=== PATIENT | female | born 1940 | race Caucasian/White ===

== ENCOUNTER 2017-09-04 13:14 | Emergency (ER) | payer OTHER, MEDICAID ==
[~2017-09-04] VITALS: Ht 160 cm; Wt 81.6 kg
[2017-09-04 14:01] LABS: Urine Bacteria NONE SEEN /hpf (None Seen); Urine Blood Negative /uL (Negative); Urine Specific Gravity 1.006 (1.001-1.035); Urine WBC 6 /hpf (0 - 5)
[2017-09-04 14:13] LABS: Basophils # (auto) 0.1 uL; Basophils % (auto) 0.6 % (0.0-2.0); Eosinophils # (auto) 0.1 uL; Eosinophils % (auto) 1.4 % (0.0-7.0); Hematocrit 37.1 % (36.0-46.0); Hemoglobin 12.2 g/dL (12.2-16.2); Lymphocytes # (auto) 1.6 uL; Lymphocytes % (auto) 16.9 % (10.0-50.0); Mean Corpuscular Hemoglobin 30.1 pg (28.0-32.0); Mean Corpuscular Hgb Conc. 32.9 g/dL (32.0-36.0); Mean Corpuscular Volume 91.4 fL (80.0-100.0); Monocytes # (auto) 0.6 uL; Monocytes % (auto) 6.1 % (0.0-12.0); Neutrophils # (auto) 7.2 uL; Nucleated Red Blood Cells % 0.1 %; Platelet Count (auto) 254 10^3/uL (140-450); Red Blood Cells 4.06 10^6/uL (4.0-5.20); Red Cell Distribution Width 14.6 % (11.8-14.3); White Blood Cell 9.6 10^3/uL (4.4-10.8)
[2017-09-04 14:32] LABS: Alanine Aminotransferase 23 U/L (13-56); Albumin 3.8 g/dL (3.4-5.0); Alkaline Phosphatase 78 U/L (45-117); Anion Gap 9 (5-15); Aspartate Aminotransferase 12 U/L (15-37); BUN/Creatinine Ratio 15.4; Bilirubin, Total 0.3 mg/dL (0.2-1.0); Blood Urea Nitrogen 14 mg/dL (7-18); Calcium 8.8 mg/dL (8.5-10.1); Carbon Dioxide 22 mmol/L (21-32); Chloride 104 mmol/L (98-107); GFR African American 78 mL/min; GFR Non-African American 64 mL/min; Glucose 106 mg/dL (74-106); Magnesium 2.1 mg/dL (1.6-2.6); Potassium 3.8 mmol/L (3.5-5.1); Sodium 135 mmol/L (136-145); Total Protein 7.3 g/dL (6.4-8.2)
[2017-09-04] MEDS ORDERED: IPRATROPIUM BROM 0.5 MG/2.5ML INH SOL NEB ONE (15:45)
[2017-09-04] MEDS ORDERED: methylPREDNISolone SOD SUCC 125 MG/2 ML VL IV ONE (15:45)
[2017-09-04] MEDS ORDERED: ALBUTEROL SULF 2.5 MG/0.5ML(0.5%) NEB SOLN NEB ONE (15:45)
[2017-09-04] MEDS ORDERED: cefTRIAXone 1GM/10ml IVPUSH 10 ML IV ONE (16:00)
[2017-09-04 16:09] VITALS: BP 192/72
== END 2017-09-04 17:30 | disposition home or self-care (01) ==
LOC: ER 13:14 → EDBD 13:14 → ER 17:30
DX: J44.1 Chronic obstructive pulmonary disease with (acute) exacerbation (principal); N39.0 Urinary tract infection, site not specified; E11.9 Type 2 diabetes mellitus without complications; I10 Essential (primary) hypertension; M10.9 Gout, unspecified; F32.9 Major depressive disorder, single episode, unspecified; F17.210 Nicotine dependence, cigarettes, uncomplicated; Z59.0 Homelessness
CPT/HCPCS: 36415; 71046; 80053; 81001; 83735; 84484; 85025; 87804; 94640; 94761; 96374; 96375; 99285; J2930; 93005

== ENCOUNTER 2017-09-27 16:30 | Emergency (ER) | payer OTHER, MEDICAID ==
[~2017-09-27] VITALS: Ht 160 cm; Wt 81.6 kg
[2017-09-27 17:47] LABS: Alanine Aminotransferase 32 U/L (13-56); Albumin 3.6 g/dL (3.4-5.0); Anion Gap 11 (5-15); Aspartate Aminotransferase 21 U/L (15-37); BUN/Creatinine Ratio 10.4; Blood Urea Nitrogen 14 mg/dL (7-18); Calcium 9.1 mg/dL (8.5-10.1); Carbon Dioxide 21 mmol/L (21-32); Chloride 103 mmol/L (98-107); GFR African American 50 mL/min; GFR Non-African American 41 mL/min; Glucose 168 mg/dL (74-106); Magnesium 2.8 mg/dL (1.6-2.6); Potassium 3.9 mmol/L (3.5-5.1); Sodium 135 mmol/L (136-145)
[2017-09-27 17:50] LABS: Alkaline Phosphatase 79 U/L (45-117); Bilirubin, Total 0.4 mg/dL (0.2-1.0); Total Protein 7.3 g/dL (6.4-8.2)
[2017-09-27 17:59] LABS: Basophils # (auto) 0.1 uL; Basophils % (auto) 0.6 % (0.0-2.0); Eosinophils # (auto) 0 uL; Eosinophils % (auto) 0.3 % (0.0-7.0); Hematocrit 41.7 % (36.0-46.0); Hemoglobin 13.6 g/dL (12.2-16.2); Lymphocytes # (auto) 1.1 uL; Lymphocytes % (auto) 7.6 % (10.0-50.0); Mean Corpuscular Hemoglobin 30.2 pg (28.0-32.0); Mean Corpuscular Hgb Conc. 32.7 g/dL (32.0-36.0); Mean Corpuscular Volume 92.5 fL (80.0-100.0); Monocytes # (auto) 0.8 uL; Monocytes % (auto) 5.2 % (0.0-12.0); Neutrophils # (auto) 12.9 uL; Neutrophils % (auto) 86.3 % (37.0-80.0); Platelet Count (auto) 254 10^3/uL (140-450); Red Cell Distribution Width 14.8 % (11.8-14.3); White Blood Cell 14.9 10^3/uL (4.4-10.8)
[2017-09-27 20:55] VITALS: BP 135/80
== END 2017-09-27 21:09 | disposition home or self-care (01) ==
LOC: EDUNIT# 16:30 → ER 16:30 → EDBD 16:30 → ER 21:09
DX: R41.82 Altered mental status, unspecified (principal); F17.210 Nicotine dependence, cigarettes, uncomplicated; J44.9 Chronic obstructive pulmonary disease, unspecified; E11.9 Type 2 diabetes mellitus without complications; M10.9 Gout, unspecified; I10 Essential (primary) hypertension; Z90.710 Acquired absence of both cervix and uterus; Z90.89 Acquired absence of other organs; Z88.2 Allergy status to sulfonamides; Z91.040 Latex allergy status; Z88.0 Allergy status to penicillin
CPT/HCPCS: 36415; 70450; 71045; 80053; 83735; 84484; 85025; 93005; 94761

== ENCOUNTER 2018-01-10 09:02 | Inpatient (IN) | payer MEDICARE, MEDICAID ==
[~2018-01-10] VITALS: Ht 157.5 cm; Wt 69.9 kg
[~2018-01-10 09:02] MED LIST: APIX5TAB PO; DOCU100C8 PO; INSREGI SC; MED20T PO; NITR0.4S29 SL; NUTR-1405 PO; SERT-138 PO
[2018-01-10 09:56] LABS: Basophils # (auto) 0 uL; Basophils % (auto) 0.4 % (0.0-2.0); Eosinophils # (auto) 0.3 uL; Eosinophils % (auto) 3.2 % (0.0-7.0); Hematocrit 37.3 % (36.0-46.0); Hemoglobin 12.3 g/dL (12.2-16.2); Lymphocytes # (auto) 1.3 uL; Lymphocytes % (auto) 13.4 % (10.0-50.0); Mean Corpuscular Hemoglobin 30.5 pg (28.0-32.0); Mean Corpuscular Volume 92.3 fL (80.0-100.0); Monocytes # (auto) 0.8 uL; Monocytes % (auto) 8.9 % (0.0-12.0); Neutrophils % (auto) 74.1 % (37.0-80.0); Nucleated Red Blood Cells % 0.1 %; Platelet Count (auto) 278 10^3/uL (140-450); Red Blood Cells 4.04 10^6/uL (4.0-5.20); Red Cell Distribution Width 14.8 % (11.8-14.3); White Blood Cell 9.5 10^3/uL (4.4-10.8)
[2018-01-10 10:11] LABS: Alanine Aminotransferase 62 U/L (13-56); Anion Gap 10 (5-15); Aspartate Aminotransferase 26 U/L (15-37); BUN/Creatinine Ratio 22.2; Blood Urea Nitrogen 16 mg/dL (7-18); Calcium 8.7 mg/dL (8.5-10.1); Carbon Dioxide 20 mmol/L (21-32); Chloride 108 mmol/L (98-107); GFR African American 102 mL/min; GFR Non-African American 84 mL/min; Glucose 150 mg/dL (74-106); Magnesium 2.1 mg/dL (1.6-2.6); Potassium 3.9 mmol/L (3.5-5.1); Sodium 138 mmol/L (136-145)
[2018-01-10 10:16] LABS: Alkaline Phosphatase 84 U/L (45-117); Bilirubin, Total 0.6 mg/dL (0.2-1.0); Total Protein 6.7 g/dL (6.4-8.2)
[2018-01-10] MEDS ORDERED: ALUM & MAG HYDROX-SIMETH LIQ(MAALOX) 30 ML PO ONE (11:30)
[2018-01-10] MEDS ORDERED: DONNATAL 5ml ORAL Elix (BELLADONNA ALK-PHENOBARB) PO ONE (11:30)
[2018-01-10] MEDS ORDERED: LIDOCAINE VISCOUS 2% 15ML UD PO ONE (11:30)
[2018-01-10 13:33] LABS: Urine Bacteria MANY /hpf (None Seen); Urine Blood TRACE /uL (Negative); Urine Mucus FEW (None Seen); Urine Specific Gravity 1.023 (1.001-1.035); Urine WBC 28 /hpf (0 - 5)
[2018-01-10] MEDS ORDERED: SOD CHL 0.45% 1,000 ML IV ONE (17:15)
[2018-01-10] MEDS ORDERED: MORPHINE SULFATE 4 MG/ML SYR/VIAL IV PRN (17:15)
[2018-01-10] MEDS ORDERED: NITROGLYCERIN 0.4 MG SL TAB SL PRN (17:15)
[2018-01-10] MEDS ORDERED: POLYETHYLENE GLYCOL 17 GM PWDR PO PRN (17:30)
[2018-01-10] MEDS ORDERED: ONDANSETRON HCL 4 MG/2 ML VIAL IV PRN (17:30)
[2018-01-10] MEDS ORDERED: DEXTROSE (50%) 50ML SYRG IV PRN (17:30)
[2018-01-10] MEDS: DOCUSATE SOD 100 MG CAP PO SCH ×2 (17:53→21:01)
[2018-01-10] MEDS: APIXABAN 5 MG TAB PO SCH ×2 (17:53→21:10)
[2018-01-10] MEDS: ACCU-CHEK COMFORT CURVE STRIP VI SCH (20:58)
[2018-01-10] MEDS: InsuLIN REG 1unit/0.01ml Soln (100units/ml) SC SCH (20:58)
[2018-01-10] MEDS: MEGESTROL ACETATE 20 MG TAB PO SCH (21:10)
[2018-01-11] VITALS (7 sets, daily range): BP systolic 113–137; BP diastolic 64–85
[2018-01-11] MEDS ORDERED: TEMAZEPAM 15 MG CAP PO ONE
[2018-01-11] MEDS ORDERED: METF-370 PO (02:27)
[2018-01-11] MEDS ORDERED: INSR100KIT IV (02:34)
[2018-01-11] MEDS: ACCU-CHEK COMFORT CURVE STRIP VI SCH ×4 (06:18→22:02)
[2018-01-11] MEDS: InsuLIN REG 1unit/0.01ml Soln (100units/ml) SC SCH ×4 (06:18→22:00)
[2018-01-11 08:32] LABS: Basophils # (auto) 0.1 uL; Eosinophils # (auto) 0.3 uL; Eosinophils % (auto) 3.6 % (0.0-7.0); Hematocrit 39.6 % (36.0-46.0); Lymphocytes # (auto) 2.1 uL; Lymphocytes % (auto) 24.8 % (10.0-50.0); Mean Corpuscular Hemoglobin 30.4 pg (28.0-32.0); Mean Corpuscular Hgb Conc. 32.8 g/dL (32.0-36.0); Mean Corpuscular Volume 92.7 fL (80.0-100.0); Monocytes # (auto) 0.7 uL; Monocytes % (auto) 7.9 % (0.0-12.0); Neutrophils # (auto) 5.2 uL; Neutrophils % (auto) 62.7 % (37.0-80.0); Nucleated Red Blood Cells % 0.1 %; Platelet Count (auto) 280 10^3/uL (140-450); Red Blood Cells 4.27 10^6/uL (4.0-5.20); Red Cell Distribution Width 15.1 % (11.8-14.3); White Blood Cell 8.3 10^3/uL (4.4-10.8)
[2018-01-11 08:49] LABS: BUN/Creatinine Ratio 17.4; Calcium 8.5 mg/dL (8.5-10.1); Potassium 3.5 mmol/L (3.5-5.1)
[2018-01-11] MEDS: SERTRALINE HCL 50 MG TAB PO SCH (11:41)
[2018-01-11] MEDS: APIXABAN 5 MG TAB PO SCH ×2 (11:41→22:04)
[2018-01-11] MEDS: DOCUSATE SOD 100 MG CAP PO SCH ×2 (11:41→22:04)
[2018-01-11] MEDS: MEGESTROL ACETATE 20 MG TAB PO SCH ×2 (11:56→22:03)
[2018-01-11] MEDS ORDERED: INSREG3 SUBCUT (20:26)
[2018-01-12] VITALS (7 sets, daily range): BP systolic 122–146; BP diastolic 70–79
[2018-01-12] MEDS: ACCU-CHEK COMFORT CURVE STRIP VI SCH ×4 (06:35→21:26)
[2018-01-12] MEDS: InsuLIN REG 1unit/0.01ml Soln (100units/ml) SC SCH ×4 (06:35→21:26)
[2018-01-12] MEDS: SERTRALINE HCL 50 MG TAB PO SCH (10:06)
[2018-01-12] MEDS: APIXABAN 5 MG TAB PO SCH ×2 (10:06→21:25)
[2018-01-12] MEDS: DOCUSATE SOD 100 MG CAP PO SCH ×2 (10:06→21:25)
[2018-01-12] MEDS: MEGESTROL ACETATE 20 MG TAB PO SCH ×2 (10:15→21:25)
[2018-01-13] VITALS (7 sets, daily range): BP systolic 104–140; BP diastolic 66–85
[2018-01-13] MEDS: InsuLIN REG 1unit/0.01ml Soln (100units/ml) SC SCH ×4 (05:58→20:57)
[2018-01-13] MEDS: ACCU-CHEK COMFORT CURVE STRIP VI SCH ×4 (05:58→20:57)
[2018-01-13 06:45] LABS: Basophils # (auto) 0.1 uL; Basophils % (auto) 1.4 % (0.0-2.0); Eosinophils # (auto) 0.2 uL; Eosinophils % (auto) 2.4 % (0.0-7.0); Hematocrit 38.7 % (36.0-46.0); Hemoglobin 12.7 g/dL (12.2-16.2); Lymphocytes # (auto) 2.4 uL; Mean Corpuscular Hemoglobin 29.7 pg (28.0-32.0); Mean Corpuscular Hgb Conc. 32.9 g/dL (32.0-36.0); Mean Corpuscular Volume 90.3 fL (80.0-100.0); Monocytes # (auto) 0.7 uL; Monocytes % (auto) 8.1 % (0.0-12.0); Neutrophils # (auto) 5.4 uL; Neutrophils % (auto) 61.1 % (37.0-80.0); Nucleated Red Blood Cells % 0.1 %; Platelet Count (auto) 233 10^3/uL (140-450); Red Blood Cells 4.29 10^6/uL (4.0-5.20); Red Cell Distribution Width 14.6 % (11.8-14.3); White Blood Cell 8.9 10^3/uL (4.4-10.8)
[2018-01-13 07:36] LABS: BUN/Creatinine Ratio 14.1; Calcium 8.7 mg/dL (8.5-10.1); Potassium 3.6 mmol/L (3.5-5.1)
[2018-01-13] MEDS: APIXABAN 5 MG TAB PO SCH ×2 (10:00→21:09)
[2018-01-13] MEDS: MEGESTROL ACETATE 20 MG TAB PO SCH ×2 (10:00→21:09)
[2018-01-13] MEDS: SERTRALINE HCL 50 MG TAB PO SCH (10:01)
[2018-01-13] MEDS: DOCUSATE SOD 100 MG CAP PO SCH ×2 (10:01→21:09)
[2018-01-13] MEDS ORDERED: LEVOFLOXACIN 500MG 100 ML IV ONE (16:45)
[2018-01-14 05:00] VITALS: BP 133/57
[2018-01-14] MEDS: ACCU-CHEK COMFORT CURVE STRIP VI SCH ×4 (05:54→22:51)
[2018-01-14] MEDS: InsuLIN REG 1unit/0.01ml Soln (100units/ml) SC SCH ×4 (05:54→22:51)
[2018-01-14 05:55] LABS: Basophils # (auto) 0.1 uL; Basophils % (auto) 0.6 % (0.0-2.0); Eosinophils # (auto) 0.2 uL; Eosinophils % (auto) 2.8 % (0.0-7.0); Hematocrit 36.5 % (36.0-46.0); Hemoglobin 12.4 g/dL (12.2-16.2); Lymphocytes # (auto) 2.2 uL; Mean Corpuscular Hemoglobin 31.1 pg (28.0-32.0); Mean Corpuscular Volume 91.4 fL (80.0-100.0); Monocytes # (auto) 0.8 uL; Monocytes % (auto) 10.1 % (0.0-12.0); Neutrophils # (auto) 4.9 uL; Neutrophils % (auto) 59.5 % (37.0-80.0); Nucleated Red Blood Cells % 0.1 %; Platelet Count (auto) 297 10^3/uL (140-450); Red Blood Cells 3.99 10^6/uL (4.0-5.20); Red Cell Distribution Width 14.3 % (11.8-14.3); White Blood Cell 8.2 10^3/uL (4.4-10.8)
[2018-01-14 06:13] LABS: BUN/Creatinine Ratio 15.1; Calcium 8.7 mg/dL (8.5-10.1); Potassium 3.7 mmol/L (3.5-5.1)
[2018-01-14 08:00] VITALS: BP 129/75
[2018-01-14 08:25] VITALS: BP 129/75
[2018-01-14] MEDS: LEVOFLOXACIN 500MG 100 ML IV SCH (11:02)
[2018-01-14] MEDS: MEGESTROL ACETATE 20 MG TAB PO SCH ×2 (11:03→22:51)
[2018-01-14] MEDS: DOCUSATE SOD 100 MG CAP PO SCH ×2 (11:03→22:50)
[2018-01-14] MEDS: SERTRALINE HCL 50 MG TAB PO SCH (11:03)
[2018-01-14] MEDS: APIXABAN 5 MG TAB PO SCH ×2 (11:03→22:50)
[2018-01-14 13:00] VITALS: BP 138/77
[2018-01-14 17:10] VITALS: BP 121/72
[2018-01-14 22:00] VITALS: BP 145/63
[2018-01-15 05:00] VITALS: BP 124/63
[2018-01-15] MEDS: InsuLIN REG 1unit/0.01ml Soln (100units/ml) SC SCH ×4 (07:01→21:47)
[2018-01-15] MEDS: ACCU-CHEK COMFORT CURVE STRIP VI SCH ×4 (07:01→21:47)
[2018-01-15 07:50] LABS: Basophils # (auto) 0.1 uL; Basophils % (auto) 0.6 % (0.0-2.0); Eosinophils # (auto) 0.2 uL; Eosinophils % (auto) 1.9 % (0.0-7.0); Hematocrit 36.4 % (36.0-46.0); Hemoglobin 12.1 g/dL (12.2-16.2); Mean Corpuscular Hemoglobin 30.3 pg (28.0-32.0); Mean Corpuscular Hgb Conc. 33.1 g/dL (32.0-36.0); Mean Corpuscular Volume 91.3 fL (80.0-100.0); Monocytes # (auto) 0.6 uL; Monocytes % (auto) 7.8 % (0.0-12.0); Neutrophils # (auto) 5.2 uL; Neutrophils % (auto) 64.7 % (37.0-80.0); Nucleated Red Blood Cells % 0.1 %; Platelet Count (auto) 298 10^3/uL (140-450); Red Blood Cells 3.99 10^6/uL (4.0-5.20); Red Cell Distribution Width 14.5 % (11.8-14.3); White Blood Cell 8.1 10^3/uL (4.4-10.8)
[2018-01-15 07:52] LABS: BUN/Creatinine Ratio 18.6; Calcium 8.6 mg/dL (8.5-10.1); Potassium 3.6 mmol/L (3.5-5.1)
[2018-01-15 08:00] VITALS: BP 143/73
[2018-01-15 09:00] VITALS: BP 143/98
[2018-01-15] MEDS ORDERED: hydrALAZINE HCL 20 MG/ML VL IV PRN (09:15)
[2018-01-15] MEDS: MEGESTROL ACETATE 20 MG TAB PO SCH ×2 (10:20→21:46)
[2018-01-15] MEDS: LEVOFLOXACIN 500MG 100 ML IV SCH (10:20)
[2018-01-15] MEDS: APIXABAN 5 MG TAB PO SCH ×2 (10:20→21:30)
[2018-01-15] MEDS: SERTRALINE HCL 50 MG TAB PO SCH (10:20)
[2018-01-15] MEDS: DOCUSATE SOD 100 MG CAP PO SCH ×2 (10:21→21:30)
[2018-01-15 13:00] VITALS: BP 139/70
[2018-01-15 17:00] VITALS: BP 144/75
[2018-01-15 21:49] VITALS: BP 147/79
[2018-01-16 04:35] LABS: Basophils # (auto) 0.1 uL; Basophils % (auto) 0.9 % (0.0-2.0); Eosinophils # (auto) 0.2 uL; Eosinophils % (auto) 2.2 % (0.0-7.0); Hematocrit 35.7 % (36.0-46.0); Hemoglobin 12.2 g/dL (12.2-16.2); Lymphocytes # (auto) 2.6 uL; Lymphocytes % (auto) 29.1 % (10.0-50.0); Mean Corpuscular Hemoglobin 31.1 pg (28.0-32.0); Mean Corpuscular Hgb Conc. 34.2 g/dL (32.0-36.0); Mean Corpuscular Volume 90.9 fL (80.0-100.0); Monocytes # (auto) 0.7 uL; Monocytes % (auto) 8.5 % (0.0-12.0); Neutrophils # (auto) 5.2 uL; Neutrophils % (auto) 59.3 % (37.0-80.0); Nucleated Red Blood Cells % 0.1 %; Platelet Count (auto) 284 10^3/uL (140-450); Red Blood Cells 3.93 10^6/uL (4.0-5.20); Red Cell Distribution Width 14.4 % (11.8-14.3); White Blood Cell 8.8 10^3/uL (4.4-10.8)
[2018-01-16 04:50] LABS: Calcium 8.8 mg/dL (8.5-10.1); Potassium 3.7 mmol/L (3.5-5.1)
[2018-01-16 04:52] VITALS: BP 149/69
[2018-01-16 04:52] LABS: BUN/Creatinine Ratio 17.9
[2018-01-16] MEDS: ACCU-CHEK COMFORT CURVE STRIP VI SCH ×4 (06:29→21:20)
[2018-01-16] MEDS: InsuLIN REG 1unit/0.01ml Soln (100units/ml) SC SCH ×4 (06:30→21:46)
[2018-01-16 09:14] VITALS: BP 160/77
[2018-01-16] MEDS: LEVOFLOXACIN 500MG 100 ML IV SCH (10:18)
[2018-01-16] MEDS: SERTRALINE HCL 50 MG TAB PO SCH (10:19)
[2018-01-16] MEDS: DOCUSATE SOD 100 MG CAP PO SCH ×2 (10:19→21:18)
[2018-01-16] MEDS: APIXABAN 5 MG TAB PO SCH ×2 (10:19→21:19)
[2018-01-16] MEDS: MEGESTROL ACETATE 20 MG TAB PO SCH ×2 (10:24→21:19)
[2018-01-16 10:58] VITALS: BP 160/77
[2018-01-16 12:49] VITALS: BP 135/74
[2018-01-16 17:10] VITALS: BP 121/103
[2018-01-16 22:00] VITALS: BP 148/72
[2018-01-17 05:11] VITALS: BP 155/77
[2018-01-17] MEDS: InsuLIN REG 1unit/0.01ml Soln (100units/ml) SC SCH ×2 (05:18→12:09)
[2018-01-17] MEDS: ACCU-CHEK COMFORT CURVE STRIP VI SCH ×2 (05:18→12:08)
[2018-01-17 06:18] LABS: Basophils # (auto) 0 uL; Basophils % (auto) 0.5 % (0.0-2.0); Eosinophils # (auto) 0.2 uL; Eosinophils % (auto) 1.9 % (0.0-7.0); Hematocrit 36.2 % (36.0-46.0); Hemoglobin 12.4 g/dL (12.2-16.2); Lymphocytes # (auto) 2.1 uL; Lymphocytes % (auto) 25.1 % (10.0-50.0); Mean Corpuscular Hemoglobin 31.1 pg (28.0-32.0); Mean Corpuscular Hgb Conc. 34.1 g/dL (32.0-36.0); Mean Corpuscular Volume 90.9 fL (80.0-100.0); Monocytes # (auto) 0.7 uL; Neutrophils # (auto) 5.4 uL; Neutrophils % (auto) 64.5 % (37.0-80.0); Nucleated Red Blood Cells % 0.1 %; Platelet Count (auto) 294 10^3/uL (140-450); Red Blood Cells 3.98 10^6/uL (4.0-5.20); Red Cell Distribution Width 14.3 % (11.8-14.3); White Blood Cell 8.4 10^3/uL (4.4-10.8)
[2018-01-17 06:40] LABS: BUN/Creatinine Ratio 21.3; Calcium 8.7 mg/dL (8.5-10.1); Potassium 3.4 mmol/L (3.5-5.1)
[2018-01-17 09:00] VITALS: BP 144/67
[2018-01-17] MEDS: DOCUSATE SOD 100 MG CAP PO SCH (10:19)
[2018-01-17] MEDS: APIXABAN 5 MG TAB PO SCH (10:19)
[2018-01-17] MEDS: LEVOFLOXACIN 500MG 100 ML IV SCH (10:19)
[2018-01-17] MEDS: MEGESTROL ACETATE 20 MG TAB PO SCH (10:19)
[2018-01-17] MEDS: SERTRALINE HCL 50 MG TAB PO SCH (10:19)
[2018-01-17 13:12] VITALS: BP 121/62
[2018-01-17 16:38] VITALS: BP 157/77
[2018-01-17 17:00] VITALS: BP 143/75
== END 2018-01-17 18:00 | DRG 445 ==
LOC: EDBD 09:02 → ER 09:04 → TELE 09:05 → TELE-WESTW 01-11 00:50
PROVIDERS: ADMIT Internal Medicine; ATTEND Internal Medicine
DX: K80.20 Calculus of gallbladder without cholecystitis without obstruction (principal); N39.0 Urinary tract infection, site not specified; F32.9 Major depressive disorder, single episode, unspecified; J44.9 Chronic obstructive pulmonary disease, unspecified; I10 Essential (primary) hypertension; M47.897 Other spondylosis, lumbosacral region; E11.9 Type 2 diabetes mellitus without complications; K59.00 Constipation, unspecified; Z79.01 Long term (current) use of anticoagulants; Z90.710 Acquired absence of both cervix and uterus; Z99.81 Dependence on supplemental oxygen; Z83.6 Family history of other diseases of the respiratory system; Z91.040 Latex allergy status; Z88.2 Allergy status to sulfonamides; Z86.718 Personal history of other venous thrombosis and embolism; Z86.711 Personal history of pulmonary embolism; Z88.0 Allergy status to penicillin; Z82.5 Family history of asthma and other chronic lower respiratory diseases; Z81.8 Family history of other mental and behavioral disorders; Z84.89 Family history of other specified conditions; Z90.89 Acquired absence of other organs
CPT/HCPCS: 36415; 74176; 80048; 80053; 81001; 82962; 83735; 84484; 85025; 87081; 87086; 87088; 87186; 93005; J1815; J1956